=== PATIENT | female | born 1955 | race Caucasian/White ===

== ENCOUNTER 2018-06-21 12:10 | Emergency (ER) | payer OTHER ==
[~2018-06-21] VITALS: Ht 154.9 cm; Wt 49.0 kg
[2018-06-21 13:07] VITALS: BP 98/57
[2018-06-21] MEDS ORDERED: METOCLOPRAMIDE 5 MG/ML, 2ML ONE (13:15)
[2018-06-21] MEDS ORDERED: KETOROLAC 30 MG/1 ML ONE (13:15)
[2018-06-21] MEDS ORDERED: DIPHENHYDRAMINE 25 MG CAPSULE ONE (13:15)
[2018-06-21] MEDS ORDERED: SODIUM CHLORIDE 0.9% 1,000ML IVBOLUS ONE (13:30)
[2018-06-21] MEDS ORDERED: METOCLOPRAMIDE 5 MG/ML, 2ML IVPush ONE (13:30)
[2018-06-21] MEDS ORDERED: SODIUM CHLORIDE FLUSH 10ML SYR IVF ONE (13:30)
[2018-06-21] MEDS ORDERED: DIPHENHYDRAMINE 50 MG/ML, 1ML IVPush ONE (13:30)
[2018-06-21] MEDS ORDERED: KETOROLAC 30 MG/1 ML IVPush ONE (13:30)
[2018-06-21] MEDS ORDERED: PROCHLORPERAZINE 5 MG/ML, 2ML ONE (14:22)
[2018-06-21] MEDS ORDERED: PROCHLORPERAZINE 5 MG/ML, 2ML IV ONE (14:30)
== END 2018-06-21 15:16 | disposition home or self-care (01) ==
LOC: ED 15:10
DX: G43.009 Migraine without aura, not intractable, without status migrainosus (principal)
CPT/HCPCS: 96374; 96375; 99284; J0780; J1200; J1885; J2765; J7030